=== PATIENT | female | born 1955 | race Caucasian/White ===

== ENCOUNTER 2023-10-20 07:08 | Emergency (ER) | payer MEDICARE, MEDICAID ==
[~2023-10-20] VITALS: Ht 152.4 cm; Wt 82.6 kg
[2023-10-20 07:49] VITALS: BP 139/45; PULSE 77; RESP 16; TEMP 99.7; O2SAT 94
[2023-10-20 08:59] LABS: COVID19 ANTIGEN SOFIA FIA POSITIVE (NEGATIVE)
[2023-10-20] MEDS ORDERED: NIRM1TAB7 PO (09:08)
[2023-10-20] MEDS ORDERED: METH4PAK PO (09:08)
== END 2023-10-20 09:01 | disposition home or self-care (01) ==
LOC: ER 07:08
DX: U07.1 COVID-19 (principal); J44.9 Chronic obstructive pulmonary disease, unspecified; I10 Essential (primary) hypertension
CPT/HCPCS: 36415; 71045; 87426